=== PATIENT | male | born 1990 | race Caucasian/White ===

== ENCOUNTER 2016-11-10 20:37 | Emergency (ER) | payer MEDICAID, OTHER ==
[~2016-11-10] VITALS: Ht 182.9 cm; Wt 32.0 kg
[~2016-11-10 20:37] MED LIST: DENIES
[2016-11-10 20:42] VITALS: Ht 182.9 cm; Wt 32.0 kg
[2016-11-10] MEDS ORDERED: ONDANSETRON (ODT) 4 MG TAB ODT STA (21:24)
[2016-11-10] MEDS ORDERED: DIPHTH/TET/ACEL PERTUSS (ADULT) 0.5 ML VIAL IM* ONE (21:30)
[2016-11-10] MEDS ORDERED: HYDROCODONE/APAP (5/325) TAB PO ONE (21:30)
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
--- NOTE | 2016-11-10 21:42 | RADRPT ---
PROCEDURE: XR right shoulder. CLINICAL INDICATION: No TECHNIQUE: AP Internal and external rotation views of the right shoulder were performed. COMPARISON: None. FINDINGS: There is normal osseous mineralization and alignment. No acute fracture or osseous lesion is identified. There are normal joints without evidence of arthritis or dislocation. The soft tissues are unremarkable. IMPRESSION: Unremarkable right shoulder. RPTAT:AAJJ Physician Nasir Date Time Electronically viewed and signed by Physician Nasir on 11/10/2016 21:41 SASKHI/
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
[2016-11-10 23:11] VITALS: BP 143/67; PULSE 80; RESP 16; TEMP 97.8
[2016-11-10] MEDS ORDERED: HYDR-906 PO (23:29)
[2016-11-10] MEDS ORDERED: IBUP-1542 PO (23:29)
== END 2016-11-10 23:58 | disposition home or self-care (01) ==
LOC: FTE 20:37
DX: S49.91XA Unspecified injury of right shoulder and upper arm, initial encounter (principal); S06.0X0A Concussion without loss of consciousness, initial encounter; S61.402A Unspecified open wound of left hand, initial encounter; S00.11XA Contusion of right eyelid and periocular area, initial encounter; S51.001A Unspecified open wound of right elbow, initial encounter; V23.9XXA Unspecified motorcycle rider injured in collision with car, pick-up truck or van in traffic accident, initial encounter; Z23 Encounter for immunization
CPT/HCPCS: 70450; 70480; 73030; 90471; 90715; Z7502; Z7610

== ENCOUNTER 2019-08-26 14:38 | Emergency (ER) | payer OTHER ==
[~2019-08-26] VITALS: Ht 190.5 cm; Wt 129.0 kg
[~2019-08-26 14:38] MED LIST changes: +ACET325T33 PO; +BACL10TA PO; +CYCL10TA7 PO; +HYDR-3980 PO; +HYDR-4011 PO; +IBUP-1542 PO; +NAPR-985 PO; +PRED20TA PO
[2019-08-26 14:49] VITALS: BP 151/83; PULSE 114; RESP 20; Ht 190.5 cm; Wt 129.0 kg
[2019-08-26] MEDS ORDERED: KETOROLAC 30 MG INJ IM STA (15:23)
[2019-08-26] MEDS ORDERED: HYDROCODONE/APAP (10/325) TAB PO ONE (15:30)
[2019-08-26] MEDS ORDERED: HYDROCODONE/APAP (5/325) TAB PO ONE (15:30)
== END 2019-08-26 16:06 | disposition home or self-care (01) ==
LOC: FTE 14:38
DX: M54.9 Dorsalgia, unspecified (principal)
CPT/HCPCS: 96372; J1885; Z7502; Z7610